=== PATIENT | female | born 1955 | race Caucasian/White ===

== ENCOUNTER 2017-11-24 13:05 | Emergency (ER) | payer MEDICAID ==
[~2017-11-24] VITALS: Ht 162.6 cm; Wt 61.0 kg
[2017-11-24] MEDS ORDERED: ATEN1TAB42 PO (13:11)
[2017-11-24 17:25] VITALS: BP 135/72
== END 2017-11-24 17:50 | disposition home or self-care (01) ==
LOC: ER 13:16
DX: M25.562 Pain in left knee (principal); M25.561 Pain in right knee; M17.0 Bilateral primary osteoarthritis of knee; W01.0XXA Fall on same level from slipping, tripping and stumbling without subsequent striking against object, initial encounter; Y93.9 Activity, unspecified; Y92.9 Unspecified place or not applicable
CPT/HCPCS: 73562; 99284